=== PATIENT | male | born 1975 | race Caucasian/White ===

== ENCOUNTER 2024-09-10 08:07 | Emergency (ER) | payer BC, SELFPAY ==
[2024-09-10 08:36] VITALS: BP 149/89; PULSE 85; RESP 16; TEMP 36.9; O2SAT 97
--- NOTE | 2024-09-10 09:03 | ED.GENADUL_ITS ---
Discharge Plan Disposition Patient Disposition: Home Condition: Good Discharge Details Clinical Impression: Inguinal hernia Primary Care Provider: None,None ED Provider: Laurie Garcias Home Meds and New Rx's Prescriptions: No Action No Known Home Meds Discharge Instructions Instructions: Groin Hernia (DC) Additional Instructions: As we discussed, your exam is concerning for a hernia. As it is easily reduced, I do not see that you need surgery emergently. However, I have referred you to general surgery as this continues to enlarge I am concerned that it may continue to get bigger. You should hear from them over the next few days but you may also call their number, number listed below, to schedule an appointment. If you develop pain, fevers, inability to reduce the hernia, redness or other new/worsening symptom please seek care urgently once again. I also referred you to a primary care provider. Your blood pressure was slightly elevated here today and should continue to be monitored with primary care doctor. Stand Alone Forms: Work Release Referrals: Akil Perez MD [ [facility] STAFF PHYSICIAN] - Discharge Data Discharge Date/Time-TO BE ENTERED AT DEPARTURE: 09/10/24 09:36 HPI General Date/Time Provider Initiated Documentation: 09/10/24 08:41 . Limitations to Documentation: no limitations . Information obtained by: patient and RN notes reviewed . History of Present Illness 49 year old M presents to the emergency department with the chief complaint of left sided hernia, movement in stomach, described as mild (no signficant pain), and is localized to the abdomen. Patient reports no radiation. Patient started experiencing this month(s) and it has been intermittent. No relieving factors improve symptom(s), (able to reduce the hernia) Other factors that worsen symptoms (coughing with recent URI) . Patient notes no other symptoms.. Patient did receive the following treatments prior to arrival, none Related Data Home Medications ?Medication ?Instructions ?Recorded ?Confirmed Unknown [No Known Home Meds] 09/10/24 09/10/24 Allergies Allergy/AdvReac Type Severity Reaction Status Date / Time No Known Allergies Allergy Unverified 09/10/24 08:41 General Stated Complaint: Abd Prob DELLA: 3 Review of Systems Constitutional Constitutional: Reports as per HPI, Denies chills, Denies fever(s) and Denies headache(s) ENT Ears, Nose, Mouth, and Throat: Denies headache(s) Cardiovascular Cardiovascular: Reports as per HPI, Denies chest pain and Denies dyspnea Respiratory Respiratory: Reports as per HPI, Denies cough and Denies dyspnea Gastrointestinal Gastrointestinal: Reports as per HPI Genitourinary Genitourinary: Denies system reviewed and no additional complaints, except as documented (patient denies any change in urinary habits) Musculoskeletal Musculoskeletal: Reports as per HPI and Denies back pain Integumentary/Breasts Skin/Breast: Reports as per HPI and Denies rash Neurologic Neurologic: Reports as per HPI and Denies headache(s) Exam Const General: cooperative, healthy appearing, comfortable, no acute distress and well developed Nutritional Appearance: average body habitus and well nourished Orientation: alert and awake Resp Effort & Inspection: normal respiratory effort, able to speak in complete sentences and no respiratory distress Auscultation: clear to auscultation bilaterally, no rales, no rhonchi and no wheezes Cardio Rate: regular rate Rhythm: regular rhythm Heart Sounds: S1 normal and S2 normal GI Inspection: visible herniation Palpation: soft, hernia direct inguinal on the left, no pulsatile masses, nontender and No ascites Percussion: normal to percussion Auscultation: normal bowel sounds Back/Spine/Pelvis Back: no CVA tenderness Skin General skin exam: no rashes or lesions noted Trauma: no lacerations or abrasions Neuro General: patient alert and patient awake Cognition: normal cognition Speech: speech normal Gait: normal gait Course Vital Signs Vital signs: Vital Signs Temperature 36.9 C 09/10/24 08:36 Pulse 85 09/10/24 08:36 Respiratory Rate 16 09/10/24 08:36 Blood Pressure 149/89 H 09/10/24 08:36 Pulse Oximetry 97 09/10/24 08:36 Temperature 36.9 C 09/10/24 08:36 Pulse 85 09/10/24 08:36 Respiratory Rate 16 09/10/24 08:36 Blood Pressure 149/89 H 09/10/24 08:36 Blood Pressure Position Sitting 09/10/24 08:36 Pulse Oximetry 97 09/10/24 08:36 Oxygen Delivery Method Room Air 09/10/24 08:36 Oxygen Flow Rate 0 09/10/24 08:36 Pain Level 0 09/10/24 08:36 Medical Decision Making Patient is a pleasant 49-year-old male with no significant past medical history, presenting today with chief complaint of hernia, swelling of the left testes and unusual symptoms in his abdomen such as feeling things move. He reports that he first noticed a hernia on the left side and inguinal canal about 2 months ago. He associates with heavy lifting at work. States that he has not had any pain with this. Worse after recent URI and during which she was coughing frequently. He has noted this enlarging. However, he states that it is her tender, red, from and is easily reducible. No previous abdominal surgeries. On exam, patient appears non-toxic. He is resting comfortably in no acute distress. Abdomen is nontender but patient has obvious hernia left inguinal hernia. Swelling and hernia into the left side of scrotum. No pain, erythema or firmness. Hernia is easily reducible. Renee and I discussed care. No evidence to suggest incarceration or strangulation of the hernia, easily reducible. Will refer to general surgery for continued management. We discussed activities to avoid that may worsen things. discussedstrict return precautions. All of his questions and concerns were addressed, he is in agreement with this plan. This documentation was generated using [employer] dictation system, please disregard any oddities of phrase or misspellings. Quality:SDOH Health Related Social Needs: No Data to Display PFSH All Active Problems (Updated 09/10/24 @ 09:27 by DAMIÁN Kate) Inguinal hernia (Acute) Social History Smoking risk assessment performed?: No Alcohol Intake: current Alcohol Intake frequency: holidays/special occasions only Substance use type: does not use PAWSS Have you Been Recently Intoxicated or Drunk Within the Last 30 days?: No Have you Ever Experienced Previous Episodes of Alcohol Withdrawal?: No Have you ever Experienced Withdrawal Seizures?: No Have you ever Experienced Delirium Tremens(DT)s?: No Have you ever undergone Alcohol Rehabilitation Treatment (i.e, inpt ot outpatient treatment programs)?: No Have you ever Experienced Blackouts?: No Have you ever Combined Alcohol with other Downers within the last 90 days?: No Have you ever Combined Alcohol with any other Substance of Abuse during the last 90 days?: No Result: 0
[2024-09-10 09:36] VITALS: BP 133/94; BP 149/89; PULSE 84; PULSE 85; RESP 16; RESP 18; TEMP 36.9; O2SAT 97; O2SAT 98
== END 2024-09-10 09:36 | disposition home or self-care (01) ==
PROVIDERS: Emergency Provider Physician Assistant
DX: K40.90 Unilateral inguinal hernia, without obstruction or gangrene, not specified as recurrent (principal)
CPT/HCPCS: 99283

== ENCOUNTER 2024-10-10 07:30 | Day surgery (SDC) | payer BC, SELFPAY ==
--- NOTE | 2024-10-09 18:40 | W.PM.OP ---
Operative Note Operative Note PRE-OP DIAGNOSIS: Left inguinal hernia PROCEDURE: Left sided open inguinal hernia repair with mesh SURGEON: Akil Perez BLENDING MACHINE FEEDER: Michaela Stack ANESTHESIA TYPE: Local By Surgeon, General LMA/ETT and Other (Left inguinal TAP block) Refer to Anesthesia Record ESTIMATED BLOOD LOSS: 25 PATHOLOGY: none sent COMPLICATIONS: None Patient was transported to: PACU Patient's condition: stable Implants: Bard PerFix light extra-large plug and patch Indications: TOVA is a 49-year-old male with symptomatic left-sided inguinal hernia Findings: Large indirect left inguinal hernia Procedure Description: I began by confirming the correct site with the patient. Next, we moved back to the operating room, and TOVA was assisted onto the OR table. General endotracheal anesthesia was induced. The surgical site was then prepped and draped in the usual fashion. I established a generous field block using local anesthetic mixed with Exparel. I began by making an oblique incision over the left inguinal region. I dissected down through the skin to the deep fascia. Next, I incised the fascia along the length of the inguinal canal to the external ring. I then carefully identified the ilioinguinal nerve and sharply divided. I anesthetized this area as well. Once this was complete, I bluntly dissected the shelving edge of the inguinal ligament down towards the pubic tubercle. Here, I encircled all cord structures with a Anchorage drain. Next, I began dissecting the specific cord structures. Dissection was quite tedious as this extended well down into the scrotum. Great care was taken to spare the vas deferens and the blood supply to the testicle. Next, I isolated the hernia sac from the other inguinal structures. I reduced it back to its normal anatomic position. This was a massive indirect inguinal hernia, but after mobilization, it was easily reduced. I then used a extra-large mesh plug to obliterate the defect at the internal ring. I fixed in place with interrupted Prolene stitches. Next, I buttressed the posterior floor of the inguinal canal with a large mesh patch. I started by fixing it to the pubic tubercle. Next, I used Prolene sutures to affix it to the shelving edge of the inguinal ligament and the conjoined tendon. Laterally I tacked it to the internal oblique fascia and reconstructed an internal ring without any strain on the cord structures. Once this was complete, I irrigated the surgical field. It appeared hemostatic. I then closed the anterior portion of the fascia to reconstruct the front wall of the inguinal canal. I did this with interrupted Vicryl stitches. This layer was anesthetized once again. I then irrigated the surgical field and inspected for hemostasis. Finally, I approximated the superficial fascia and the deep layers of the skin with absorbable suture. Skin was closed with running subcuticular stitches. Bandages were applied, the patient was awakened and transferred to the recovery unit. Date of Procedure: 10/10/24
--- NOTE | 2024-10-09 18:41 | W.PM.DSUDISC ---
Date of service: 10/10/24 Discharge Plan Disposition Patient Disposition: Home Condition: Good Discharge Details Reason For Visit: Left inguinal hernia repair Attending Provider: Akil Perez Primary Care Provider: None,None Home Meds and New Rx's Prescriptions: New tramadol 50 mg tablet 50 mg PO Q8H PRNQty: 12 0RF Rx Instructions: Take 1 tablet by mouth up to every 8 hours if needed for more severe pain. Discharge Instructions Instructions: Groin Hernia Repair, Open Surgery Additional Instructions: TOVA, was great seeing you today, and I hope you are comfortable through the procedure, and that you feel well in the days to come. I tried to anesthetize as much tissue as possible with the long-acting anesthetic, so hopefully that will provide some relief. As you already know, your hernia was quite large and extended well down into the scrotum. We were able to get this all up into its normal position, pushed back into place, and the defect closed up just as we discussed before hand. Because of the size of the hernia, this will leave a relatively large potential space in your scrotum. Often times this will fill up with fluid after the operation and cause quite a bit of swelling. Wearing some tight fitting underpants, or something like a jockstrap, and trying to keep her pelvis elevated as much as possible over the next 3 to 4 days will probably be the most helpful thing. Certainly, you should get up and walk around a bit from time to time, but when you are relaxing, try to lay flat and keep her pelvis high. This will also result in a fair amount of bruising that will extend down into the scrotum, and probably some of the penis. The bruising itself is nothing to be alarmed about. I did write a prescription for some pain medications in case you needed in the days to come. As we talked about beforehand, alternating Tylenol and ibuprofen over the next 2 days will also be a good strategy. If you need anything, or have any questions at all, please do not hesitate to call, otherwise look forward to seeing you on October 23 at your postoperative follow-up 1. Resume all of your regular medications. 2. Alternate heating pads and ice packs over the incision to help with pain. 3. Alternate over the counter tylenold and ibuprofen every 6 hours for the first 2 days, then use as needed. Use the prescription for tramadol if needed for more severe pain 4. Leave bandage in place for 24 hours, then remove. 5. Shower with warm soapy water. Pat dry. Use a bandaid if needed to protect your clothing. 6. No soaking or tub baths until I see you in the office. 7. No heavy lifting until I see you in the office. 8. Call the office (or go directly to the emergency room after hours) if you notice any of the following: Develop chills (warm to touch), or if you have a thermometer and your temperature is above 101 Difficulty breathing or difficultly swallowing Persistent vomiting Any bleeding ? exceeding one tablespoon 9. Call your physician if the site where your intravenous was started becomes red, swollen, painful, and warm to touch. Referrals: Akil Perez MD [ [facility] STAFF PHYSICIAN] - Activity:: no heavy lifting Remove Dressings/Wound Care:: 24 hours Shower/Bathe:: 24 hours Diet:: As Tolerated Discharge Orders Discharge Orders: Discharge Order (Routine); Ordered 10/09/24 Ordered By: Akil Perez DS: Diagnosis Discharge Diagnosis (1) Inguinal hernia: Status: Acute Asessment and Plan: Outpatient postoperative follow-up
--- NOTE | 2024-10-09 18:44 | ROE_ITS ---
Operative Note Operative Note PRE-OP DIAGNOSIS: Left inguinal hernia PROCEDURE: Left sided open inguinal hernia repair with mesh CHILD & ADOLESCENT PSYCHIATRIST: Michaela Stack ANESTHESIA TYPE: Local By Surgeon, General LMA/ETT and Other (Left inguinal TAP block) Refer to Anesthesia Record Implants: Left sided open inguinal hernia repair with mesh Date of Procedure: 10/10/24
[2024-10-10] VITALS (28 sets, daily range): BP systolic 92–116; BP diastolic 61–85; PULSE 51–71; RESP 14–23; TEMP 36.1–36.9; O2SAT 98–100; BMI 26.4
[2024-10-10] MEDS: Gabapentin 300 MG CAP 600 MG PO (08:07)
[2024-10-10] MEDS: Celecoxib 200 MG CAP PO (08:08)
[2024-10-10] MEDS: Acetaminophen 500 MG TAB 1000 MG PO (08:08)
--- NOTE | 2024-10-10 08:14 | W.ANESPRE ---
General Info Date of Service Date Performed: 10/10/24 Height: 6 ft 2 in Weight: 93.2 kg Body Mass Index (BMI): 26.4 Surgical Procedure: Operation Date: 10/10/24 09:10 Proposed Procedure Side Surgeon p Herniorrhaphy Inguinal Left Akil Perez MD Meds Allergies and Home Medications Allergies Allergy/AdvReac Type Severity Reaction Status Date / Time No Known Allergies Allergy Verified 10/10/24 07:49 Home Medication ?Medication ?Instructions ?Recorded Unknown [No Known Home Meds] 09/10/24 Current Visit Medications: Current Medications Generic Name Dose Route Start Last Admin Trade Name Freq PRN Reason Stop Dose Admin Acetaminophen 1,000 mg 10/10/24 06:00 Acetaminophen 500 Mg Tab PO 10/10/24 23:59 PREOP LARRY Celecoxib 200 mg 10/10/24 06:00 Celecoxib 200 Mg Cap PO 10/10/24 23:59 PREOP LARRY Gabapentin 600 mg 10/10/24 06:00 Gabapentin 300 Mg Cap PO 10/10/24 23:59 PREOP LARRY Hydromorphone HCl 0.2 mg 10/09/24 18:45 Hydromorphone 2 Mg/Ml Syr IVP 11/08/24 18:44 Q1H PRN PRN Cefazolin Sodium/Dextrose 2 gm in 50 mls @ 100 mls/hr 10/10/24 06:00 Ancef Duplex IVPB 10/10/24 23:59 PREOP LARRY Ringer's Solution 1,000 mls @ 80 mls/hr 10/10/24 07:15 IV 11/09/24 07:14 INF[facility]ION [facility] IV Miscellaneous Supplies 1 each 10/10/24 06:00 Iv Access IV 10/10/24 23:59 DIRECTED LARRY Sodium Chloride 0 ml 10/10/24 06:00 Normal Saline Flush 10 Ml Syr IV 10/10/24 23:59 PRN PRN Sodium Chloride 0 ml 10/10/24 06:00 Normal Saline 10 Ml Vial IJ 10/10/24 23:59 DIRECTED PRN Sterile Water 0 ml 10/10/24 06:00 Water,Injection,Sterile 10 Ml Vial IJ 10/10/24 23:59 DIRECTED PRN Tramadol HCl 50 mg 10/09/24 18:45 Tramadol 50 Mg Tab PO 11/08/24 18:44 Q6H PRN PRN Pain PFSH Active Problems Active Problems: Problem Status Onset Code Inguinal hernia Acute K40.90 Surgical History Surgical History (Updated 10/09/24 @ 09:18 by Michael Schuler) Hx of tonsillectomy Tobacco Smoking/Tobacco Use Status: Former Tobacco Use Alcohol Alcohol Intake: current Alcohol intake frequency: holidays/special occasions only Substance Use Substance use type: does not use Vital Signs and Lab Results Vital Signs Most Recent Vital Signs in EMR: Most Recent Vital Signs Temp Pulse Resp BP Pulse Ox 36.9 C 71 16 116/83 98 10/10/24 07:45 10/10/24 07:45 10/10/24 07:45 10/10/24 07:45 10/10/24 07:45 Lab Results Blood Type / Crossmatch: No Data to Display Complete Blood Count: No Data to Display Complete Metabolic Panel: No Data to Display Liver Function Panel: No Data to Display Coagulation Panel: No Data to Display Cardiac Panel: No Data to Display Arterial Blood Gas: No Data to Display Venous Blood Gas: No Data to Display Pancreas Panel: No Data to Display Thyroid Panel: No Data to Display Infectious Disease: No Data to Display Blood Cultures: No Data to Display Toxicology Panel: No Data to Display Anesthesia Assessment and Plan Anesthesia History Personal History: No History of Anesthesia Complications Family History: No Family History of Anesthesia Complications Exercise Tolerance Exercise Tolerance: Metabolic Equivalents>4 Pertinent Negatives Pertinent Negatives: No Symptoms of GERD Cardiac & Pulmonary Exam Cardiac Exam: Normal S1/S2 Heart Sounds Pulmonary Exam: Clear Bilateral Breath Sounds Implantable Cardiac Device Does patient have a Pacemaker or an ICD?: No Airway Exam Known Difficult Airway: No Mallampati Class: 1 Mouth Opening: Normal (> 3cm) Thyromental Distance: Greater than 3 cm Neck Range of Motion: Full ROM Neck Circumference: Normal Teeth Condition: Normal Dentition ASA Classification ASA Score: ASA 2 Emergency Case?: No NPO Status NPO Status: NPO Clears >2 hours, Solids >8 hours Anesthesia Plan Resuscitation Status: Full Code Anesthesia Technique: General Anesthesia Airway Planned: LMA Monitors Used: Standard Monitors
[2024-10-10] MEDS: Lactated Ringers 1,000 ML 80 ML IV (08:15)
[2024-10-10] MEDS: ceFAZolin 2 GM/50 ML BAG IVPB (09:28)
[2024-10-10] MEDS: Bupivacaine 0.25% Pres-Free 30 ML VIAL (10:26)
[2024-10-10] MEDS: Normal Saline 20 ML VIAL (10:27)
[2024-10-10] MEDS: Bupivacaine LIPOSOME/PF 133 MG/10 ML VIAL IJ (10:27)
--- NOTE | 2024-10-10 13:55 | W.ANESPOSTOP ---
Postoperative Evaluation Date, Time and Location Date Performed: 10/10/24 Time Performed: 13:10 Patient Location: Day Surgery Unit Vital Signs Most Recent Imported Vital Signs: Most Recent Vital Signs Temp Pulse Resp BP Pulse Ox 36.1 C L 52 L 15 110/85 100 10/10/24 12:25 10/10/24 12:25 10/10/24 12:25 10/10/24 12:10/10/24 12:25 Pain Score Most Recent Pain Score: Most Recent Pain Score Pain Level 3 10/10/24 13:10 Assessment Mental Status: Awake (Alert & Oriented to Patient Baseline) Airway and Respiratory Function: Patent airway with normal (patient baseline) respiratory exam Cardiovascular Function: Hemodynamically Stable Hydration Status: Adequately Hydrated Nausea & Vomiting: No Nausea or Vomiting Pain: Pain is tolerable per patient Peripheral Nerve Block: Patient did not receive a nerve block
== END 2024-10-10 13:30 | disposition home or self-care (01) ==
LOC: SUR 07:31
PROVIDERS: Visit Provider Surgery
PROC: (CPT 49505; principal; 2024-10-10 09:00)
DX: K40.90 Unilateral inguinal hernia, without obstruction or gangrene, not specified as recurrent (principal)
CPT/HCPCS: 49505; C1781; J0665; J0666; J0690; J1100; J2250; J2405; J2704